=== PATIENT | female | born 1935 | race Caucasian/White ===

== ENCOUNTER 2018-03-02 12:25 | Inpatient (IN) | payer MEDICARE ==
[~2018-03-02] VITALS: Ht 162.6 cm; Wt 87.7 kg
[2018-03-02 14:06] LABS: BASOPHILS # (AUTO) 0.1 (0.0-0.1); EOSINOPHILS # (AUTO) 0.4 (0.0-0.4); EOSINOPHILS % 6.6 % (0.0-6.0); HEMATOCRIT 23.6 % (34.2-44.1); HEMOGLOBIN 7.7 g/dL (12.0-16.0); LYMPHOCYTES # (AUTO) 1.6 (1.0-3.2); LYMPHOCYTES % 26.9 % (18.0-39.1); MEAN CORPUSCULAR HEMOGLOBIN 35.2 pg (28-32); MEAN CORPUSCULAR HGB CONC 32.6 g/dL (31-35); MEAN CORPUSCULAR VOLUME 107.8 fL (81-99); MONOCYTES # (AUTO) 0.6 (0.2-0.8); MONOCYTES % 10.7 % (4.4-11.3); NEUTROPHILS # (AUTO) 3.2 (2.1-6.9); NEUTROPHILS % 53.9 % (38.7-80.0); PLATELET COUNT 262 x10e3/uL (140-360); RED BLOOD COUNT 2.19 x10e6/uL (3.6-5.1); RED CELL DISTRIBUTION WIDTH 15.1 % (11.7-14.4)
[2018-03-02 14:11] LABS: INR 1.11; PARTIAL THROMBOPLASTIN TIME 29.5 seconds (23.8-35.5); PROTHROMBIN TIME 13.5 seconds (11.9-14.5)
[2018-03-02 14:18] LABS: ALBUMIN 3.2 g/dL (3.5-5.0); ALBUMIN/GLOBULIN RATIO 1.1 (0.8-2.0); ANION GAP 13.4 mmol/L (8-16); CALCIUM 8.5 mg/dL (8.4-10.2); POTASSIUM 3.4 mmol/L (3.5-5.1)
[2018-03-02] MEDS ORDERED: PANTOPRAZOLE 40 MG 10ML VIAL IV STA (14:38)
[2018-03-02] MEDS ORDERED: SODIUM CHLORIDE 0.9% 250ML 250 ML IV ONE (14:45)
[2018-03-02] MEDS ORDERED: D5.45%NS/KCL 20MEQ 1,000 ML IV SCH (15:01)
[2018-03-02] MEDS ORDERED: NAMENDA10 MG PO (15:14)
[2018-03-02] MEDS ORDERED: PANTOPRAZOLE SO40 MG PO (15:14)
[2018-03-02] MEDS ORDERED: FOLIC ACID1 MG PO (15:14)
[2018-03-02] MEDS ORDERED: METOPROLOL TART25 MG PO (15:14)
[2018-03-02] MEDS ORDERED: ARICEPT5 MG PO (15:14)
[2018-03-02] MEDS ORDERED: LEVOTHYROXINE75 MCG PO (15:14)
[2018-03-02] MEDS ORDERED: LOSARTAN POTASS25 MG PO (15:14)
[2018-03-02] MEDS ORDERED: COLACE100 MG PO (15:14)
[2018-03-02] MEDS ORDERED: MIRALAX17 GM PO (15:14)
[2018-03-02] MEDS ORDERED: FERROUS SULFAT325 MG PO (15:14)
[2018-03-02] MEDS ORDERED: GABAPENTIN100 MG PO (15:14)
[2018-03-02] MEDS ORDERED: MELATONIN3 MG PO (15:14)
[2018-03-02] MEDS ORDERED: VITAMIN B COMP1 EAC1 PO (15:14)
[2018-03-02] MEDS ORDERED: VITAMIN D31000 UNI1 PO (15:14)
[2018-03-02] MEDS ORDERED: SUCRALFATE1 GM PO (15:14)
[2018-03-02] MEDS ORDERED: LIPITOR10 MG PO (15:14)
[2018-03-02] MEDS ORDERED: SODIUM CHLORIDE FLUSH 10 ML SYR INJ PRN (15:15)
[2018-03-02] MEDS ORDERED: OCTREOTIDE ACETATE 0.05 MG/ML AMP IV ONE ×2 (15:15→22:15)
[2018-03-02] MEDS: PANTOPRAZOLE INJ 40 MG in SODIUM CHLORIDE 0.9% 50ML 50 ML IV SCH (15:30)
--- NOTE | 2018-03-02 16:29 | Diagnostic Imaging Report ---
PROCEDURE:ABDOMEN ACUTE SERIES W/PA CXR COMPARISON:None. INDICATIONS:BLEEDING ULCER, ABDOMINAL PAIN FINDINGS: CHEST: Enlargement of the cardiac silhouette.. Central pulmonary venous congestion and mild perihilar interstitial edema. No consolidation or effusion. BOWEL PATTERN: Nonobstructive bowel gas pattern. No air-filled, dilated loops of bowel. Moderate amount of retained stool in the colon. No pneumoperitoneum. SOFT TISSUES: No abnormal calcifications. BONES: Moderate degenerative changes in the lumbosacral spine. Left total hip replacement. Orthopedic hardware is partially visualized in the proximal right femur. Mild to moderate degenerative changes in the right hip joint. CONCLUSION: 1. Enlarged cardiac silhouette with central pulmonary venous congestion and mild perihilar interstitial edema. 2. No air-filled, dilated loops of bowel. Moderate amount of retained stool in the colon. Rome Ahmadi M.D. Dictated by: Rome Ahmadi M.D. on 03/02/2018 at 16:34 Electronically approved by: Rome Ahmadi M.D. on 03/02/2018 at 16:34
[2018-03-02 16:54] VITALS: BP 146/51
[2018-03-02] MEDS ORDERED: ALBUTEROL/IPRATROPIUM 3 ML NEB NEB PRN (17:15)
[2018-03-02] MEDS ORDERED: FUROSEMIDE INJ 10 MG/ML 4 ML VIAL IV ONE ×2 (17:45)
--- NOTE | 2018-03-02 17:59 | History and Physical ---
CHIEF COMPLAINT: The patient was transferred from the prison due to low hemoglobin of 7.4 on routine lab ordered at prison. HISTORY OF PRESENT ILLNESS: An 82-year-old pleasant female with a past medical history of advanced Alzheimer's dementia, hypothyroidism, hypertension, peptic ulcer disease was admitted at [facility] this afternoon with the above complaints. Apparently, the patient was admitted at [facility] about a month back. History with the help of daughter and son. The patient is a very poor historian. Apparently, the patient was admitted at [facility] about a month back with the same complaint of low hemoglobin. There the patient had GI workup done. The patient was found to have gastric ulcer. The patient was found to have a hemoglobin of 7.4 at prison today. The patient was transferred here for blood transfusion. At present, the patient is lying comfortably in bed and confused. In no apparent distress. PAST MEDICAL HISTORY 1. Advanced Alzheimer's dementia. 2. Peptic ulcer disease. 3. Anemia. 4. Hypertension. 5. Constipation. 6. DJD. MEDICATIONS: As listed in the chart. ALLERGIES: NO KNOWN DRUG ALLERGIES. SURGICAL HISTORY: Bilateral hip replacement, bilateral cataracts. FAMILY HISTORY: Noncontributory. SOCIAL HISTORY: No smoking. No alcohol. No illicit drug use. Lives in prison. REVIEW OF SYSTEMS: Unable to elicit due to the patient's advanced Alzheimer's dementia. PHYSICAL EXAMINATION GENERAL: The patient is alert, awake and oriented times zero. Confused and lying in bed in no apparent distress. VITALS: Temperature is 98, pulse 64 per minute, respiratory rate 18, blood pressure 146/60, and saturation is 95%. HEENT: No icterus. Pallor plus. Normocephalic and atraumatic. PERRLA. NECK: Soft and supple. No JVD. LUNGS: Air entry bilaterally equal. Bibasilar rales plus. Occasional wheezing plus. HEART: S1 and S2. No murmurs, gallops or rubs. ABDOMEN: Soft and nontender. Bowel sounds plus. GLASS ENAMEL MIXER: Alert, awake and oriented times zero. Confused. Moves extremities. EXTREMITIES: Bilateral pedal edema plus. LABS: On admission today, sodium 144, potassium 3.4, chloride 111, bicarb 23, BUN 14, creatinine 1, glucose 142. LFTs noted. White count 5.8, hemoglobin 7.7, hematocrit 23.6, and platelets 262,000. PT 13.5, INR 1.11, PTT 29.5. X-ray of the abdomen shows enlarged cardiac silhouette with central venous pulmonary venous congestion and mild perihilar interstitial edema. No air-filled dilated loops of bowel. Moderate amount of retained stool in the colon. ASSESSMENT 1. Severe anemia likely due to upper gastrointestinal bleed and peptic ulcer disease. 2. Congestive heart failure exacerbation. 3. History of Alzheimer's dementia. 4. Hypertension. 5. Constipation. 6. Degenerative joint disease. PLAN: Admit the patient to med/tele. The patient is getting 2 units of packed RBC transfusion, Lasix 40 mg IV daily with first dose now, oxygen, neb treatments. Cardiology consultation with Dr. Key. GI consultation with Dr. Grecia Greenfield. Serial H and H. EKG, echo. DVT and stress prophylaxis. IV Protonix. Further care and treatment while the patient is in the hospital. Prognosis and condition guarded. Discussed with daughter at bedside in detail. Job#: [id number] ELVIRA
[2018-03-02 19:00] VITALS: BP 124/86
[2018-03-02 20:40] VITALS: BP 141/67
[2018-03-02] MEDS ORDERED: SODIUM CHLORIDE 0.9% 250ML 250 ML ONE (21:25)
[2018-03-02] MEDS: ATORVASTATIN 10 MG TAB PO SCH (21:53)
[2018-03-02] MEDS: METOPROLOL TARTRATE 25 MG TAB PO SCH (21:53)
[2018-03-02] MEDS: MELATONIN 3 MG TAB PO SCH (21:53)
[2018-03-02] MEDS: DONEPEZIL HCL 5 MG TAB PO SCH (21:53)
[2018-03-02 22:15] VITALS: BP 141/49
[2018-03-03] VITALS (10 sets, daily range): BP systolic 132–164; BP diastolic 52–115
--- NOTE | 2018-03-03 00:17 | Consultation ---
DATE OF CONSULTATION: REASON FOR CONSULT: GI bleed. CONSULT PUT IN BY REFERRING PHYSICIAN: Dr. Jeff Way CHIEF COMPLAINT: Anemia. HISTORY OF PRESENT ILLNESS: Patient is 83-year-old female with a past medical history of dementia, hypothyroidism, hypertension, PUD, who is admitted for anemia and weakness from the [facility]. We had seen the patient about a month ago at [facility], and an EGD was performed where a gastric ulcer was found. Patient is a very poor historian and majority of the history and records were taken from family members. There are no reports of bleeding in the stools, and patient is found to have a hemoglobin of 7.4 and is receiving a blood transfusion. PAST MEDICAL HISTORY: Dementia, PUD, anemia, constipation, hypertension. MEDICATIONS: Patient takes PPI daily as well as Carafate. ALLERGIES: NO KNOWN DRUG ALLERGIES. SURGICAL HISTORY: Bilateral cataracts, bilateral hip replacement. FAMILY HISTORY: Noncontributory. SOCIAL HISTORY: Does not drink or smoke. No illicit drug use reported. REVIEW OF SYSTEMS: Unable to attain due to altered mental status. PHYSICAL EXAMINATION: GENERAL: Alert, awake, disoriented. VITAL SIGNS: Temperature 98, pulse 64, respiratory rate 18, blood pressure 146/64, saturation 95. HEENT: Anicteric. Normocephalic, nontraumatic. NECK: Supple, nontender. LUNGS: Clear to auscultation bilaterally. HEART: No murmurs, gallops, or rubs. ABDOMEN: Soft, nontender. Normal bowel sounds. NEURO: Alert, awake, and disoriented. EXTREMITIES: Bilateral 1+ edema, no clubbing or cyanosis. LABS: Sodium 144, chloride 111, BUN 14, glucose 142. Hemoglobin 7.7, platelets 262,000. PT 13.5, INR 1.1. IMAGING: Abdominal x-ray showed central pulmonary venous congestion and no air-filled dilated loops of bowel as well as moderate amount of retained stool in the colon. ASSESSMENT: 1. Severe anemia. 2. History of peptic ulcer disease. 3. Dementia. 4. Constipation. PLAN: 1. We will proceed with EGD tomorrow with Dr. Greenfield. Orders have been put in for a consent and n.p.o. after midnight. 2. Monitor H and H, transfuse if less than 7. 3. Fecal occult blood is ordered to check for blood amount. 4. Continue bowel regimen for constipation. Thank you for consulting. We will follow. Dictated By: Krystal Michelle PA-C Patient seen and examined on 03/02/18. Agree with documentation as above. Discussed with family. Grecia Greenfield Job#: [id number] DR DIAZ
[2018-03-03 02:00] LABS: HEMATOCRIT 28.7 % (34.2-44.1); HEMOGLOBIN 9.8 g/dL (12.0-16.0)
[2018-03-03] MEDS: PANTOPRAZOLE INJ 40 MG in SODIUM CHLORIDE 0.9% 50ML 50 ML IV SCH ×3 (03:00→15:45)
[2018-03-03 05:28] LABS: BASOPHILS # (AUTO) 0.1 (0.0-0.1); BASOPHILS % 1.4 % (0.0-1.0); EOSINOPHILS # (AUTO) 0.4 (0.0-0.4); EOSINOPHILS % 5.9 % (0.0-6.0); HEMATOCRIT 28.1 % (34.2-44.1); HEMOGLOBIN 9.2 g/dL (12.0-16.0); LYMPHOCYTES # (AUTO) 1.8 (1.0-3.2); LYMPHOCYTES % 24.2 % (18.0-39.1); MEAN CORPUSCULAR HGB CONC 32.7 g/dL (31-35); MEAN CORPUSCULAR VOLUME 100.7 fL (81-99); MONOCYTES # (AUTO) 0.8 (0.2-0.8); MONOCYTES % 10.3 % (4.4-11.3); NEUTROPHILS # (AUTO) 4.3 (2.1-6.9); NEUTROPHILS % 57.4 % (38.7-80.0); PLATELET COUNT 251 x10e3/uL (140-360); RED BLOOD COUNT 2.79 x10e6/uL (3.6-5.1)
[2018-03-03 05:53] LABS: ALBUMIN 3.2 g/dL (3.5-5.0); ALBUMIN/GLOBULIN RATIO 1.1 (0.8-2.0); ANION GAP 15.2 mmol/L (8-16); CALCIUM 8.4 mg/dL (8.4-10.2); CREATININE, SERUM 0.98 mg/dL (0.57-1.11); POTASSIUM 3.2 mmol/L (3.5-5.1)
[2018-03-03] MEDS: LEVOTHYROXINE SODIUM 75 MCG TAB PO SCH (06:35)
[2018-03-03] MEDS: SUCRALFATE 1 GM TAB PO SCH ×3 (08:00→16:30)
[2018-03-03 08:44] LABS: MAGNESIUM 1.9 MG/DL (1.3-2.1)
[2018-03-03] MEDS ORDERED: POTASSIUM CHLORIDE 20MEQ/100ML 200 ML IV ONE (08:45)
[2018-03-03] MEDS: METOPROLOL TARTRATE 25 MG TAB PO SCH ×2 (09:00→21:16)
[2018-03-03] MEDS: LOSARTAN POTASSIUM 25 MG TAB PO SCH (09:00)
[2018-03-03] MEDS: DOCUSATE SODIUM 100 MG CAP PO SCH ×2 (09:00→17:00)
[2018-03-03] MEDS: MEMANTINE 10 MG TAB PO SCH ×2 (09:00→17:00)
[2018-03-03] MEDS: POLYETHYLENE GLYCOL 3350 17 GM PACK PO SCH ×2 (09:00→17:00)
[2018-03-03] MEDS: FOLIC ACID 1 MG TAB PO SCH (09:00)
[2018-03-03] MEDS: FERROUS SULFATE 325 MG TAB PO SCH ×2 (09:00→17:00)
[2018-03-03 09:10] LABS: THYROID STIMULATING HORMONE 4.237 uIU/mL (0.350-4.940)
[2018-03-03] MEDS: FUROSEMIDE INJ 10 MG/ML 4 ML VIAL IV SCH (09:25)
--- NOTE | 2018-03-03 10:20 | Consultation ---
DATE OF CONSULTATION: March 03, 2018 CARDIOLOGY CONSULTATION REASON FOR CONSULTATION: CHF and cardiac arrhythmia. HPI: This is an 83-year-old female with history of Alzheimer that was sent from the correction due to low H and H. She received some blood transfusion. She is pending EGD today. Cardiology was consulted due to the history of CHF and cardiac arrhythmia. She is confused, alert and oriented times 1. She denied any chest pain. She has a history of CHF, and was recently discharged from [facility]. EKG shows sinus bradycardia with prolonged QT-wave. PAST MEDICAL HISTORY: Hypothyroidism, dementia, anemia hypertension, degenerative joint disease, peptic ulcer disease, CHF, constipation. PAST SURGICAL HISTORY: Not sure. FAMILY HISTORY: Noncontributory. SOCIAL HISTORY: She lives in a correction. MEDICATIONS: See med list. ALLERGIES: SHE IS NOT ALLERGIC TO ANY MEDICATION. REVIEW OF SYSTEMS: Unable to obtain due to dementia. She is positive for low H and H. PHYSICAL EXAMINATION VITAL SIGNS: Temperature 98, heart rate 56, blood pressure 137/52, respirations 16, oxygen saturation 98% on 2 L nasal cannula. GENERAL: She is alert and awake and oriented times 1. HEENT: Mucous membrane moist. NECK: Supple. LUNGS: Bilateral clear to auscultation. CARDIOVASCULAR: S1 and S2 present. ABDOMEN: Soft. NEUROLOGICAL: She is oriented times 1. EXTREMITIES: Bilateral lower extremities with positive +1 edema. LABS: Sodium 146, potassium 3.2, chloride 109, CO2 25, BUN is 16, creatinine 0.98, glucose 106. White blood cells 7.4, hemoglobin 9.2, hematocrit 28.1, platelet 251,000. PT 13.5, PTT 29.5 and INR 1.1. IMPRESSION 1. Anemia. 2. Hypokalemia. 3. Sinus bradycardia. 4. Dementia. 5. Prolonged QT-wave. 6. History of peptic ulcer disease. 7. History of congestive heart failure. ASSESSMENT AND PLAN: Will go ahead and replace her potassium. She has received blood transfusion and pending EGD today. Will get an echo to reassess the LV and the valve function. Will go ahead and hold her beta pop due to the low heart rate. She has been on dementia medications, and that could be the cause of the prolonged QT-wave. She is asymptomatic. Will check her BNP, and continue her home medications. Further cardiac workup pending clinical course. Thank you for this consultation. DICTATED BY BORIS LOVE NP Job#: [id number] RI
[2018-03-03] MEDS ORDERED: PROPOFOL IV EMULSION 10 MG/ML 20 ML VIAL ONE (14:23)
[2018-03-03] MEDS ORDERED: LIDOCAINE HCL 2% LOCAL INJ 5 ML SDV VIAL INJ ONE (14:23)
[2018-03-03 14:49] LABS: HEMATOCRIT 28.9 % (34.2-44.1); HEMOGLOBIN 9.5 g/dL (12.0-16.0)
[2018-03-03] MEDS ORDERED: HYDRALAZINE HCL 20 MG/ML VIAL IV PRN (17:45)
[2018-03-03 21:16] LABS: HEMATOCRIT 31.2 % (34.2-44.1); HEMOGLOBIN 10.7 g/dL (12.0-16.0)
[2018-03-03] MEDS: ATORVASTATIN 10 MG TAB PO SCH (21:16)
[2018-03-03] MEDS: MELATONIN 3 MG TAB PO SCH (21:16)
[2018-03-03] MEDS: DONEPEZIL HCL 5 MG TAB PO SCH (21:16)
[2018-03-04 04:52] VITALS: BP 147/54
[2018-03-04 05:18] LABS: BASOPHILS # (AUTO) 0.1 (0.0-0.1); BASOPHILS % 1.2 % (0.0-1.0); EOSINOPHILS # (AUTO) 0.5 (0.0-0.4); EOSINOPHILS % 6.2 % (0.0-6.0); HEMATOCRIT 28.5 % (34.2-44.1); HEMOGLOBIN 9.7 g/dL (12.0-16.0); LYMPHOCYTES # (AUTO) 1.8 (1.0-3.2); LYMPHOCYTES % 21.2 % (18.0-39.1); MEAN CORPUSCULAR HEMOGLOBIN 33.8 pg (28-32); MEAN CORPUSCULAR VOLUME 99.3 fL (81-99); MONOCYTES # (AUTO) 0.9 (0.2-0.8); MONOCYTES % 10.4 % (4.4-11.3); NEUTROPHILS # (AUTO) 5.1 (2.1-6.9); NEUTROPHILS % 60.4 % (38.7-80.0); PLATELET COUNT 242 x10e3/uL (140-360); RED BLOOD COUNT 2.87 x10e6/uL (3.6-5.1); RED CELL DISTRIBUTION WIDTH 18.4 % (11.7-14.4)
[2018-03-04] MEDS: SUCRALFATE 1 GM TAB PO SCH ×4 (05:18→17:00)
[2018-03-04] MEDS: LEVOTHYROXINE SODIUM 75 MCG TAB PO SCH (05:18)
[2018-03-04 05:36] LABS: ANION GAP 13.4 mmol/L (8-16); CALCIUM 8.6 mg/dL (8.4-10.2); CREATININE, SERUM 0.97 mg/dL (0.57-1.11); MAGNESIUM 1.8 MG/DL (1.3-2.1); POTASSIUM 3.4 mmol/L (3.5-5.1)
[2018-03-04] MEDS ORDERED: POTASSIUM CHLORIDE 20MEQ/15ML UDC NG NR (08:00)
[2018-03-04] MEDS: LOSARTAN POTASSIUM 25 MG TAB PO SCH ×2 (09:00→12:00)
[2018-03-04] MEDS: DOCUSATE SODIUM 100 MG CAP PO SCH ×2 (09:00→17:00)
[2018-03-04] MEDS: POLYETHYLENE GLYCOL 3350 17 GM PACK PO SCH ×2 (09:00→17:00)
[2018-03-04] MEDS: MEMANTINE 10 MG TAB PO SCH ×3 (09:00→17:00)
[2018-03-04] MEDS: METOPROLOL TARTRATE 25 MG TAB PO SCH ×2 (09:00→21:00)
[2018-03-04] MEDS: FOLIC ACID 1 MG TAB PO SCH ×2 (09:00→12:00)
[2018-03-04] MEDS: FERROUS SULFATE 325 MG TAB PO SCH ×2 (09:00→17:00)
[2018-03-04] MEDS: FUROSEMIDE INJ 10 MG/ML 4 ML VIAL IV SCH (09:00)
[2018-03-04 11:00] VITALS: BP 156/70
[2018-03-04 11:01] VITALS: BP 156/70
[2018-03-04] MEDS: PANTOPRAZOLE INJ 40 MG in SODIUM CHLORIDE 0.9% 50ML 50 ML IV SCH ×3 (11:45→21:45)
[2018-03-04 16:57] VITALS: BP 171/78
[2018-03-04 19:15] LABS: HEMATOCRIT 29.6 % (34.2-44.1); HEMOGLOBIN 9.9 g/dL (12.0-16.0)
[2018-03-04 19:25] VITALS: BP 163/61
[2018-03-04] MEDS: ATORVASTATIN 10 MG TAB PO SCH (21:00)
[2018-03-04 23:00] VITALS: BP 160/64
[2018-03-05] VITALS (8 sets, daily range): BP systolic 124–164; BP diastolic 50–69
[2018-03-05] MEDS: PANTOPRAZOLE INJ 40 MG in SODIUM CHLORIDE 0.9% 50ML 50 ML IV SCH ×4 (02:45→17:23)
[2018-03-05 05:15] LABS: HEMATOCRIT 28.4 % (34.2-44.1); HEMOGLOBIN 9.4 g/dL (12.0-16.0)
[2018-03-05] MEDS: LEVOTHYROXINE SODIUM 75 MCG TAB PO SCH (07:07)
[2018-03-05] MEDS: SUCRALFATE 1 GM TAB PO SCH ×3 (08:00→17:21)
[2018-03-05] MEDS ORDERED: PEG (High)/E-LYTE SOLN 4,000 ML BTL PO ONE (08:30)
[2018-03-05] MEDS: DOCUSATE SODIUM 100 MG CAP PO SCH ×2 (09:00→17:00)
[2018-03-05] MEDS: METOPROLOL TARTRATE 25 MG TAB PO SCH ×2 (09:00→20:33)
[2018-03-05] MEDS: FUROSEMIDE INJ 10 MG/ML 4 ML VIAL IV SCH (09:00)
[2018-03-05] MEDS: POLYETHYLENE GLYCOL 3350 17 GM PACK PO SCH ×2 (09:00→17:00)
[2018-03-05] MEDS: NITROGLYCERIN 0.3 MG/HR PATCH TOP SCH (10:00)
[2018-03-05] MEDS: FERROUS SULFATE 325 MG TAB PO SCH ×2 (10:00→17:00)
[2018-03-05] MEDS: FOLIC ACID 1 MG TAB PO SCH (10:00)
[2018-03-05] MEDS: LOSARTAN POTASSIUM 25 MG TAB PO SCH (10:00)
[2018-03-05] MEDS: MEMANTINE 10 MG TAB PO SCH ×2 (10:00→17:21)
[2018-03-05 19:06] LABS: HEMATOCRIT 29.9 % (34.2-44.1); HEMOGLOBIN 9.9 g/dL (12.0-16.0)
[2018-03-05 20:12] LABS: ANION GAP 13.4 mmol/L (8-16); BLOOD UREA NITROGEN 13 mg/dL (7-26); CARBON DIOXIDE 24 mmol/L (22-29); CHLORIDE 110 mmol/L (98-107); POTASSIUM 3.4 mmol/L (3.5-5.1); SODIUM 144 mmol/L (136-145)
[2018-03-05 20:13] LABS: ALANINE AMINOTRANSFERASE 13 IU/L (0-55); ALBUMIN 3.2 g/dL (3.5-5.0); ALBUMIN/GLOBULIN RATIO 1.1 (0.8-2.0); BUN/CREATININE RATIO 15 (6-25); CALCIUM 8.8 mg/dL (8.4-10.2); CREATININE, SERUM 0.86 mg/dL (0.57-1.11); EST GLOMERULAR FILTRATION RATE > 60 ML/MIN (60-); GLUCOSE 93 mg/dL (74-118)
[2018-03-05 20:14] LABS: ALKALINE PHOSPHATASE 85 IU/L (40-150)
[2018-03-05] MEDS: ATORVASTATIN 10 MG TAB PO SCH (20:33)
[2018-03-05] MEDS: MELATONIN 3 MG TAB PO SCH ×2 (20:33)
[2018-03-05] MEDS: DONEPEZIL HCL 5 MG TAB PO SCH ×2 (20:33)
[2018-03-06 04:49] VITALS: BP 150/78
[2018-03-06] MEDS: LEVOTHYROXINE SODIUM 75 MCG TAB PO SCH ×2 (06:00→10:41)
[2018-03-06] MEDS: SUCRALFATE 1 GM TAB PO SCH ×2 (07:30→10:42)
[2018-03-06 08:01] VITALS: BP 161/67
[2018-03-06 08:04] LABS: BASOPHILS # (AUTO) 0.1 (0.0-0.1); BASOPHILS % 1.4 % (0.0-1.0); EOSINOPHILS # (AUTO) 0.5 (0.0-0.4); EOSINOPHILS % 8.1 % (0.0-6.0); HEMOGLOBIN 9.6 g/dL (12.0-16.0); LYMPHOCYTES # (AUTO) 1.8 (1.0-3.2); LYMPHOCYTES % 28.8 % (18.0-39.1); MEAN CORPUSCULAR HEMOGLOBIN 33.7 pg (28-32); MEAN CORPUSCULAR HGB CONC 33.1 g/dL (31-35); MEAN CORPUSCULAR VOLUME 101.8 fL (81-99); MONOCYTES # (AUTO) 0.8 (0.2-0.8); NEUTROPHILS # (AUTO) 3.2 (2.1-6.9); NEUTROPHILS % 49.2 % (38.7-80.0); PLATELET COUNT 226 x10e3/uL (140-360); RED BLOOD COUNT 2.85 x10e6/uL (3.6-5.1); RED CELL DISTRIBUTION WIDTH 16.7 % (11.7-14.4)
[2018-03-06 08:08] VITALS: BP 161/67
[2018-03-06 08:22] LABS: ANION GAP 12.2 mmol/L (8-16); BLOOD UREA NITROGEN 14 mg/dL (7-26); BUN/CREATININE RATIO 16 (6-25); CALCIUM 8.4 mg/dL (8.4-10.2); CARBON DIOXIDE 25 mmol/L (22-29); CHLORIDE 111 mmol/L (98-107); CREATININE, SERUM 0.88 mg/dL (0.57-1.11); EST GLOMERULAR FILTRATION RATE > 60 ML/MIN (60-); GLUCOSE 96 mg/dL (74-118); POTASSIUM 3.2 mmol/L (3.5-5.1); SODIUM 145 mmol/L (136-145)
[2018-03-06] MEDS: DOCUSATE SODIUM 100 MG CAP PO SCH (09:00)
[2018-03-06] MEDS: NITROGLYCERIN 0.3 MG/HR PATCH TOP SCH ×2 (09:00→10:33)
[2018-03-06] MEDS ORDERED: FUROSEMIDE 40 MG TAB PO SCH (09:00)
[2018-03-06] MEDS: METOPROLOL TARTRATE 25 MG TAB PO SCH ×2 (09:00→10:38)
[2018-03-06] MEDS: POLYETHYLENE GLYCOL 3350 17 GM PACK PO SCH (09:00)
[2018-03-06] MEDS ORDERED: POTASSIUM CHLORIDE 20 MEQ TAB CR PO ONE (09:05)
[2018-03-06] MEDS: LOSARTAN POTASSIUM 25 MG TAB PO SCH (10:32)
[2018-03-06] MEDS: FOLIC ACID 1 MG TAB PO SCH (10:32)
[2018-03-06] MEDS: MEMANTINE 10 MG TAB PO SCH (10:33)
[2018-03-06] MEDS: FERROUS SULFATE 325 MG TAB PO SCH (10:41)
[2018-03-06 13:08] VITALS: BP 141/85
[2018-03-06 15:30] VITALS: BP 146/52
[2018-03-07] MEDS ORDERED: POTASSIUM CHLORIDE 20 MEQ TAB CR PO SCH (09:00)
[2018-03-07] MEDS ORDERED: LOSARTAN POTASSIUM 100 MG TAB PO SCH (09:00)
== END 2018-03-06 15:59 | disposition hospice, inpatient (51) | DRG 377 ==
LOC: ER 12:25 → EDBD 12:25 → IMCU 15:20 → ERHOLD 15:44 → IMCU 16:17
PROVIDERS: ADMIT Internal Medicine; ATTEND Internal Medicine
PROC: 30233N1 Transfusion of Nonautologous Red Blood Cells into Peripheral Vein, Percutaneous Approach (ICD-10-PCS; principal; 2018-03-02)
PROC: 0DB68ZX Excision of Stomach, Via Natural or Artificial Opening Endoscopic, Diagnostic (ICD-10-PCS; 2018-03-03)
PROC: 0DB78ZX Excision of Stomach, Pylorus, Via Natural or Artificial Opening Endoscopic, Diagnostic (ICD-10-PCS; 2018-03-03)
DX: K25.4 Chronic or unspecified gastric ulcer with hemorrhage (principal); I50.23 Acute on chronic systolic (congestive) heart failure; G30.9 Alzheimer's disease, unspecified; F02.80 Dementia in other diseases classified elsewhere, unspecified severity, without behavioral disturbance, psychotic disturbance, mood disturbance, and anxiety; E87.6 Hypokalemia; E03.9 Hypothyroidism, unspecified; K59.00 Constipation, unspecified; I45.81 Long QT syndrome; K44.9 Diaphragmatic hernia without obstruction or gangrene; I11.0 Hypertensive heart disease with heart failure; Z79.52 Long term (current) use of systemic steroids; D50.0 Iron deficiency anemia secondary to blood loss (chronic)
CPT/HCPCS: 36415; 36430; 43235; 74022; 80048; 80053; 82270; 83735; 83880; 84443; 85014; 85018; 85025; 85610; 85730; 86850; 86900; 86920; 93005; 93306; 97139; 99284; J0360; J1940; J2001; J2354; J3480; J7050; P9016